=== PATIENT | male | born 1970 | race Caucasian/White ===

== ENCOUNTER 2018-01-11 07:10 | Emergency (ER) | payer OTHER ==
[~2018-01-11] VITALS: Ht 193 cm; Wt 115.7 kg
[2018-01-11 07:32] VITALS: BP 114/79
--- NOTE | 2018-01-11 07:41 | PHYS DOC ---
Past History Past Medical History: Hypertension Smoking: Non-smoker Adult General Chief Complaint Chief Complaint: LOWEREXTREMITY INJURY [facility] HPI Patient is a 47 year old male who presents with complaining of injury to his left thigh and right side of chest. 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 Patient had a fall and injured his right chest wall and right knee without head injury or loss of consciousness. Patient complaining of severe pain in posterior left thigh and states he is not able to bearing weight. Patient denies focal neuro deficit, nausea and vomiting, fever and chills, shortness of breath. Patient is up-to-date with tetanus immunization. Review of Systems Review of Systems Constitutional: Denies fever or chills [] Eyes: Denies change in visual acuity, redness, or eye pain [] HENT: Denies nasal congestion or sore throat [] Respiratory: Denies cough or shortness of breath [] Cardiovascular: No additional information not addressed in HPI [] GI: Denies abdominal pain, nausea, vomiting, bloody stools or diarrhea [] : Denies dysuria or hematuria [] Musculoskeletal: Denies back pain , reports joint pain [] Integument: Denies rash or skin lesions [] Neurologic: Denies headache, focal weakness or sensory changes [] Endocrine: Denies polyuria or polydipsia [] All other systems were reviewed and found to be within normal limits, except as documented in this note. Physical Exam Physical Exam Constitutional: Well developed, well nourished, mild distress, non-toxic appearance. [] HENT: Normocephalic, atraumatic. Eyes: PERRLA, EOMI, conjunctiva normal, no discharge. [] Neck: Normal range of motion, no tenderness, supple, no stridor. [] Cardiovascular:Heart rate regular rhythm, no murmur [] Lungs & Thorax: Bilateral breath sounds clear to auscultation , right side of chest wall without subcutaneous emphysema or crepitation, mild tenderness in lateral side of right chest wall] Abdomen: Bowel sounds normal, soft, no tenderness, no masses, no pulsatile masses. [] Skin: Warm, dry, no erythema, no rash. [] Back: No tenderness, no CVA tenderness. [] Extremities: Left thigh without deformity or contusion, tenderness of the hamstring muscle, painful range of motion, right knee with small abrasion and contusion without deformity, no neurovascular deficit, no edema. [] Neurologic: Alert and oriented X 3, normal motor function, normal sensory function, no focal deficits noted. [] Psychologic: Affect normal, judgement normal, mood normal. [] EKG EKG [] Radiology/Procedures Radiology/[place] [address] IMAGING REPORT Signed PATIENT: DELISA GREENFIELD ACCOUNT: [id number] : 1970 LOCATION: ER AGE: 47 SEX: M EXAM STATUS: REG ER ORD. PHYSICIAN: CHRISTIANO KULKARNI MD REASON: injury PROCEDURE: LEFT FEMUR XRAY Indication: Difficulty bearing weight on left leg. TECHNIQUE: Multiple views of the left femur COMPARISON: None Findings/ impression: No acute fracture or dislocation. No hip joint space narrowing or productive changes to suggest arthritic process. No soft tissue abnormality. Early evidence of tricompartmental osteoarthritis in the knee. Electronically signed by: Schuyler Vieira DO (01/11/2018 8:19 AM) [facility] DICTATED AND SIGNED BY: SCHUYLER VIEIRA DO DATE: 01/11/18817 CC: CHRISTIANO KULKARNI MD; SUSANA JARVIS DO ~ Course & Med Decision Making Course & Med Decision Making Pertinent Imaging studies reviewed. (See chart for details) Evaluation of patient in ER showed 47-year-old male patient with injury to left thigh and chest and right knee. X-ray of left femur did not show fracture. X- ray of right ribs and chest x-ray was interpreted by me and did not show sign of acute fracture. Patient instructed ibuprofen in ER and felt better. Crutches was provided and patient instructed to follow-up with neonatal intensive care nurse orthopedic physician or return to ER as needed. Dragon Disclaimer Dragon Disclaimer This electronic medical record was generated, in whole or in part, using a voice recognition dictation system. Departure Departure: Impression: Primary Impression: Left hamstring muscle strain Additional Impressions: Soft tissue injury of right chest wall Contusion of knee, right Fall Disposition: 01 HOME, SELF-CARE (at 0822) Condition: IMPROVED Referrals: SUSANA JARVIS DO (PCP) Patient Instructions: Abrasions, Chest Contusion, Crutch Use, Hamstring Strain with [facility] Additional Instructions: Follow-up with neonatal intensive care nurse orthopedic physician Dr. Alarcon in 3-5 days call to make an appointment Apply ice on affected area Follow-up with your primary care physician in 3-5 days Return to ER if not getting better Scripts Hydrocodone Bit/Acetaminophen (NORCO 5-325 TABLET) 1 Each Tablet 1 TAB PO PRN Q6HRS PRN for PAIN, #14 TAB 0 Refills Prov: CHRISTIANO KULKARNI MD 01/11/18 Naproxen (NAPROSYN) 500 Mg Tablet 1 TAB PO BID, #20 TAB Prov: CHRISTIANO KULKARNI MD 01/11/18 Cyclobenzaprine Hcl (CYCLOBENZAPRINE HCL) 10 Mg Tablet 1 TAB PO TID, #30 TAB Prov: CHRISTIANO KULKARNI MD 01/11/18 Problem Qualifiers CHRISTIANO KULKARNI MD Jan 11, 2018 07:41
[2018-01-11] MEDS: IBUPROFEN 400 MG TABLET. PO ONE (07:45)
[2018-01-11] MEDS ORDERED: IBUPROFEN 800 MG TABLET. PO ONE ×2 (07:47→07:49)
--- NOTE | 2018-01-11 08:22 | RAD ---
Indication: Difficulty bearing weight on left leg. TECHNIQUE: Multiple views of the left femur COMPARISON: None Findings/ impression: No acute fracture or dislocation. No hip joint space narrowing or productive changes to suggest arthritic process. No soft tissue abnormality. Early evidence of tricompartmental osteoarthritis in the knee. Electronically signed by: Schuyler Vieira DO (01/11/2018 8:19 AM) [facility] [place]
[2018-01-11] MEDS ORDERED: CYCL-331 PO (08:24)
[2018-01-11] MEDS ORDERED: HYDR-971 PO (08:24)
[2018-01-11] MEDS ORDERED: NAPR-683 PO (08:24)
--- NOTE | 2018-01-18 09:24 | RAD ---
Right RIBS with chest, 3 views, 01/11/2018: History: Injury The study is just now being presented for review. No right rib fracture is identified. There is no evidence of underlying pneumothorax, hemothorax or pulmonary infiltrate. The heart size is normal. There is a minimal thoracic scoliosis. IMPRESSION: No significant right rib abnormality is detected.
== END 2018-01-11 08:50 | disposition home or self-care (01) ==
LOC: ER 07:10
DX: S76.812A Strain of other specified muscles, fascia and tendons at thigh level, left thigh, initial encounter (principal); S29.8XXA Other specified injuries of thorax, initial encounter; S80.01XA Contusion of right knee, initial encounter; I10 Essential (primary) hypertension; X50.9XXA Other and unspecified overexertion or strenuous movements or postures, initial encounter; W18.30XA Fall on same level, unspecified, initial encounter; Y93.A9 Activity, other involving cardiorespiratory exercise; Y92.89 Other specified places as the place of occurrence of the external cause; Y99.0 Civilian activity done for income or pay
CPT/HCPCS: 71101; 73552; 99284